=== PATIENT | female | born 1960 | race Hispanic/Latino ===

== ENCOUNTER 2019-08-29 22:47 | Emergency (ER) | payer SELFPAY ==
--- NOTE | 2019-08-30 02:02 | ER ---
Nurse's Notes [facility] Name: Jen Villeda Age: 58 yrs Sex: Female : 1960 Arrival Date: 08/29/2019 Time: 22:49 Bed 16 Private MD: Diagnosis: Tinnitus, bilateral Presentation: 08/29 23:02 Presenting complaint: Patient states: decreased hearing in both ears. 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 pt c/o "rushing water sounds" in her head and ears for 3 days. Transition of care: patient was not received from another setting of care. Onset of symptoms is unknown. Risk Assessment: Do you want to hurt yourself or someone else? Patient reports no desire to harm self or others. Initial Sepsis Screen: Does the patient meet any 2 criteria? No. Patient's initial sepsis screen is negative. Does the patient have a suspected source of infection? No. Patient's initial sepsis screen is negative. Care prior to arrival: None. 23:02 Acuity: JAVED 4 ak1 23:02 Method Of Arrival: Ambulatory ak1 Triage Assessment: 23:08 General: Appears in no apparent distress. Behavior is calm, cooperative. Pain: Denies ak1 pain. EENT: Reports "rushing water" sound in her head and ears. pt c/o decreased hearing in both her ears with dizziness X3 days. . Neuro: Level of Consciousness is awake, alert, obeys commands, Oriented to person, place, time, situation, Research And Development Researcher are equal bilaterally Moves all extremities. Full function Gait is steady, Speech is normal. Cardiovascular: No deficits noted. Respiratory: No deficits noted. GI: No signs and/or symptoms were reported involving the gastrointestinal system. : No signs and/or symptoms were reported regarding the genitourinary system. Derm: No signs and/or symptoms reported regarding the dermatologic system. Musculoskeletal: No signs and/or symptoms reported regarding the musculoskeletal system. Historical: - Allergies: 23:08 Levaquin; ak1 - Home Meds: 23:08 carvedilol Oral 2 times per day [Active]; diazepam 10 mg Oral tab 1 tab nightly ak1 [Active]; - PMHx: 23:08 Anxiety; Hypertension; ak1 - PSHx: 23:08 ; ak1 - Immunization history:: Adult Immunizations unknown. - Social history:: Smoking status: Patient/guardian denies using tobacco. - Ebola Screening: : No symptoms or risks identified at this time. Screenin:06 Abuse screen: Denies threats or abuse. Denies injuries from another. Nutritional cc3 screening: No deficits noted. Tuberculosis screening: No symptoms or risk factors identified. Fall Risk Ambulatory Aid- None/Bed Rest/Nurse Assist (0 pts). Gait- Normal/Bed Rest/Wheelchair (0 pts) Mental Status- Oriented to own ability (0 pts). Assessment: 23:06 General: Appears in no apparent distress. comfortable, Behavior is calm, cooperative, cc3 appropriate for age. Pain: Denies pain. Neuro: Level of Consciousness is awake, alert, obeys commands, Oriented to person, place, time, situation, Appropriate for age. Cardiovascular: Denies chest pain, Heart tones S1 S2 present Capillary refill < 3 seconds in bilateral fingers Patient's skin is warm and dry. Respiratory: Airway is patent Respiratory effort is even, unlabored, Respiratory pattern is regular, symmetrical, Breath sounds are clear bilaterally. GI: Abdomen is round non-distended, Bowel sounds present X 4 quads. Abd is soft and non tender X 4 quads. : No signs and/or symptoms were reported regarding the genitourinary system. EENT: Reports ringing in left ear and right ear. Derm: Skin is intact, is healthy with good turgor, Skin is pink, warm \\T\\ dry. normal. Musculoskeletal: Circulation, motion, and sensation intact. Range of motion: intact in all extremities. 08/30 00:20 Reassessment: Patient appears in no apparent distress at this time. Patient and/or cc3 family updated on plan of care and expected duration. Pain level reassessed. Patient is alert, oriented x 3, equal unlabored respirations, skin warm/dry/pink. Patient denies pain at this time. 01:21 Reassessment: Patient appears in no apparent distress at this time. Patient and/or cc3 family updated on plan of care and expected duration. Pain level reassessed. Patient is alert, oriented x 3, equal unlabored respirations, skin warm/dry/pink. Patient came back from CT scan department, awaiting result. Patient denies pain at this time. 02:40 Reassessment: Patient appears in no apparent distress at this time. Patient and/or cc3 family updated on plan of care and expected duration. Pain level reassessed. Patient is alert, oriented x 3, equal unlabored respirations, skin warm/dry/pink. HOMERO Matthews discharged the patient home with prescriptions given. No IV cannula in situ. Patient left ER vitally stable and ambulatory. No valuables left in the patient's room. Patient denies pain at this time. Vital Signs: 08/29 23:01 BP 171 / 82; Pulse 74; Resp 16; Temp 97.0(O); Pulse Ox 99% on R/A; Weight 76.66 kg (R); ak1 Height 5 ft. 0 in. (152.40 cm) (R); Pain 0/10; 08/30 00:00 BP 155 / 72; Pulse 67; Resp 17 S; Pulse Ox 98% on R/A; cc3 01:23 BP 149 / 67; Pulse 65; Resp 16 S; Pulse Ox 100% on R/A; cc3 02:30 BP 159 / 81; Pulse 68; Resp 16 S; Pulse Ox 99% on R/A; Pain 0/10; cc3 08/29 23:01 Body Mass Index 33.01 (76.66 kg, 152.40 cm) ak1 ED Course: 08/29 22:49 Patient arrived in ED. cl3 23:01 Arm band placed on Patient placed in an exam room, on a stretcher, on pulse oximetry, ak1 Patient notified of wait time. 23:04 Triage completed. ak1 23:06 Gladis Robledo is Primary Nurse. cc3 23:06 Patient has correct armband on for positive identification. Placed in gown. Bed in low cc3 position. Call light in reach. Side rails up X2. Pulse ox on. NIBP on. 23:14 Baldev Matthews PA is PHCP. jr8 23:14 Vasile Ramirez MD is Attending Physician. jr8 08/30 01:20 CT Head Brain wo Cont In Process Unspecified. EDMS 02:40 No provider procedures requiring assistance completed. Patient did not have IV access cc3 during this emergency room visit. Administered Medications: No medications were administered Outcome: 02:01 Discharge ordered by . jr8 02:40 Discharged to home ambulatory. cc3 02:40 Condition: stable 02:40 Discharge instructions given to patient, Instructed on discharge instructions, follow up and referral plans. medication usage, Demonstrated understanding of instructions, follow-up care, medications, Prescriptions given X 2. 02:44 Patient left the ED. cc3 Signatures: Dispatcher [employer] EDMS Baldev Matthews PA PA jr8 Colleen Mulligan RN RN ak1 Gladis Robledo cc3 Ari Garcia cl3
--- NOTE | 2019-08-30 02:03 | EDPHYS ---
Physician Documentation [facility] Name: Jen Villeda Age: 58 yrs Sex: Female : 1960 Arrival Date: 08/29/2019 Time: 22:49 Bed 16 Private MD: ED Physician Vasile Ramirez HPI: 08/29 23:42 This 58 yrs old Female presents to ER via Ambulatory with complaints of jr8 Hearing Noises. 23:42 The patient presents with tinnitus. The complaints affect the right ear and left ear. jr8 Onset: The symptoms/episode began/occurred 3 day(s) ago. Modifying factors: The symptoms are alleviated by nothing, the symptoms are aggravated by nothing. Associated signs and symptoms: Pertinent positives: vertigo. Severity of symptoms: At their worst the symptoms were mild in the emergency department the symptoms are unchanged. Pt reports for the last 3 days she has had a noise in her ears that sounds like the wind roaring. Cannot be stopped by plugging ears. Reports it interferes with hearing and also that she has been having some dizziness when walking that also began three days ago. Historical: - Allergies: 23:08 Levaquin; ak1 - Home Meds: 23:08 carvedilol Oral 2 times per day [Active]; diazepam 10 mg Oral tab 1 tab nightly ak1 [Active]; - PMHx: 23:08 Anxiety; Hypertension; ak1 - PSHx: 23:08 ; ak1 - Immunization history:: Adult Immunizations unknown. - Social history:: Smoking status: Patient/guardian denies using tobacco. - Ebola Screening: : No symptoms or risks identified at this time. ROS: 23:42 Constitutional: Negative for fever, chills, and weight loss, Eyes: Negative for injury, jr8 pain, redness, and discharge, ENT: Negative for injury, pain, and discharge, + for tinnitus Neck: Negative for injury, pain, and swelling, Cardiovascular: Negative for chest pain, palpitations, and edema, Respiratory: Negative for shortness of breath, cough, wheezing, and pleuritic chest pain, Abdomen/GI: Negative for abdominal pain, nausea, vomiting, diarrhea, and constipation, Back: Negative for injury and pain, MS/Extremity: Negative for injury and deformity, Neuro: Negative for headache, weakness, numbness, tingling, and seizure. Exam: 23:45 Constitutional: This is a well developed, well nourished patient who is awake, alert, jr8 and in no acute distress. Head/Face: Normocephalic, atraumatic. Eyes: Pupils equal round and reactive to light, extra-ocular motions intact. Lids and lashes normal. Conjunctiva and sclera are non-icteric and not injected. Cornea within normal limits. Periorbital areas with no swelling, redness, or edema. ENT: Nares patent. No nasal discharge, no septal abnormalities noted. Tympanic membranes are normal and external auditory canals are clear. Oropharynx with no redness, swelling, or masses, exudates, or evidence of obstruction, uvula midline. Mucous membranes moist. Neck: Trachea midline, no thyromegaly or masses palpated, and no cervical lymphadenopathy. Supple, full range of motion without nuchal rigidity, or vertebral point tenderness. No Meningismus. Chest/axilla: Normal chest wall appearance and motion. Nontender with no deformity. No lesions are appreciated. Cardiovascular: Regular rate and rhythm with a normal S1 and S2. No gallops, murmurs, or rubs. Normal PMI, no JVD. No pulse deficits. Respiratory: Lungs have equal breath sounds bilaterally, clear to auscultation and percussion. No rales, rhonchi or wheezes noted. No increased work of breathing, no retractions or nasal flaring. Abdomen/GI: Soft, non-tender, with normal bowel sounds. No distension or tympany. No guarding or rebound. No evidence of tenderness throughout. Back: No spinal tenderness. No costovertebral tenderness. Full range of motion. MS/ Extremity: Pulses equal, no cyanosis. Neurovascular intact. Full, normal range of motion. Neuro: Awake and alert, GCS 15, oriented to person, place, time, and situation. Cranial nerves II-XII grossly intact. Motor strength 5/5 in all extremities. Sensory grossly intact. Cerebellar exam normal. Normal gait. 23:45 Neuro: Exam negative for acute changes, focal neuro deficits, sensory deficits, cerebellar deficits, altered mental status, confusion, cranial nerve deficits, dizziness, dysarthria, gait abnormality. Vital Signs: 23:01 BP 171 / 82; Pulse 74; Resp 16; Temp 97.0(O); Pulse Ox 99% on R/A; Weight 76.66 kg (R); ak1 Height 5 ft. 0 in. (152.40 cm) (R); Pain 0/10; 08/30 00:00 BP 155 / 72; Pulse 67; Resp 17 S; Pulse Ox 98% on R/A; cc3 01:23 BP 149 / 67; Pulse 65; Resp 16 S; Pulse Ox 100% on R/A; cc3 02:30 BP 159 / 81; Pulse 68; Resp 16 S; Pulse Ox 99% on R/A; Pain 0/10; cc3 08/29 23:01 Body Mass Index 33.01 (76.66 kg, 152.40 cm) ak1 MDM: 08/29 23:15 Patient medically screened. jr8 08/30 01:14 ED course: Patient disposition delayed as it took over an hour to have the patient go jr8 to CT. Now pending CT results . 02:00 Data reviewed: vital signs, nurses notes, radiologic studies, and as a result, I will jr8 discharge patient. Data interpreted: Pulse oximetry: on room air is 100 %. Interpretation: normal. Counseling: I had a detailed discussion with the patient and/or guardian regarding: the historical points, exam findings, and any diagnostic results supporting the discharge/admit diagnosis, the presence of at least one elevated blood pressure reading (>120/80) during this emergency department visit, the need for outpatient follow up. ED course: pt still having tinnitus, no focal neuro deficits. Discussed need for outpatient follow up and return precautions. . 08/29 23:39 Order name: CT Head Brain wo Cont jr8 Administered Medications: No medications were administered Disposition: 08/30/19 02:01 Discharged to Home. Impression: Tinnitus, bilateral. - Condition is Stable. - Discharge Instructions: Dizziness, Tinnitus. - Prescriptions for Meclizine 25 mg Oral Tablet - take 1 tablet by ORAL route every 8 hours As needed; 30 tablet. Valium 2 mg Oral Tablet - take 1 tablet by ORAL route every 8 hours As needed; 20 tablet. - Medication Reconciliation Form, Thank You Letter form. - Follow up: Private Physician; When: 2 - 3 days; Reason: Recheck today's complaints, Re-evaluation by your physician. - Problem is new. - Symptoms are unchanged. Addendum: 08/31/2019 08:31 Co-signature as Attending Physician, Vasile Ramirez MD I agree with the assessment and c rossi plan of care. Signatures: Dispatcher [employer] EDMS Vasile Ramirez MD MD cha Roszak, Josh, PA PA jr8 Colleen Mulligan, RN RN ak1 Stiven Robledoe cc3 Corrections: (The following items were deleted from the chart) 08/29 23:42 23:41 This 58 yrs old Female presents to ER via Ambulatory with complaints of jr8 Hearing Noises. jr8 08/30 02:44 02:01 08/30/2019 02:01 Discharged to Home. Impression: Tinnitus, bilateral. Condition cc3 is Stable. Forms are Medication Reconciliation Form, Thank You Letter, Antibiotic Education, Prescription Opioid Use. Follow up: Private Physician; When: 2 - 3 days; Reason: Recheck today's complaints, Re-evaluation by your physician. Problem is new. Symptoms are unchanged. jr8
[2019-08-30 02:59] VITALS: TEMP 97
[2019-08-30 03:03] VITALS: BP 159/81; O2SAT 99
--- NOTE | 2019-08-31 11:19 | RAD REPORT ---
EXAM DESCRIPTION: CT - Head Brain Wo Cont - 08/30/2019 2:48 am CLINICAL HISTORY: 58 years Female DIZZINESS, decreased hearing TECHNIQUE: Contiguous axial CT images obtained through the brain without IV contrast. Coronal and sa gittal reformats also provided. This CT exam was performed according to our departmental dose-optimization program, which includes on e or more of the following dose reduction techniques: automated exposure control, adjustment of the m A and/or kV according to patient size, and/or use of iterative reconstruction technique. COMPARISON: No prior exams provided for comparison. FINDINGS: There is no intracranial hemorrhage, extraaxial collection, or acute transcortical infarct ion. The ventricles are normal in size and contour without mass-effect or midline shift. Osseous structures are normal. The paranasal sinuses and mastoid air cells are clear. IMPRESSION: No acute intracranial abnormalities. Electronically signed by: Reina Rosado MD 08/30/2019 1:45 AM CDT Due to temporary technical issues with the PACS/Fluency reporting system, reports are being signed by the in house radiologist as a courtesy to ensure prompt reporting. The interpreting radiologist is f ully responsible for the content of the report.
== END 2019-08-30 02:44 | disposition home or self-care (01) ==
LOC: ER 22:47
DX: H93.13 Tinnitus, bilateral (principal); I10 Essential (primary) hypertension; F41.9 Anxiety disorder, unspecified; Z88.1 Allergy status to other antibiotic agents
CPT/HCPCS: 70450; 99283

== ENCOUNTER 2020-09-06 12:15 | Emergency (ER) | payer OTHER, SELFPAY ==
[2020-09-06] MEDS ORDERED: NA CHLORIDE 0.9% 1,000 ML ONE (13:04)
[2020-09-06 13:09] LABS: Absolute Lymphocytes (CBC) 2.2 K/uL (0.7-4.9); Hematocrit 39.2 % (36.0-45.0); Lymphocytes % 39.3 % (15.3-44.8); MPV 8.7 fL (7.6-11.3); RBC Red Blood Cell Count 3.99 M/uL (3.86-4.86)
[2020-09-06 13:10] LABS: Protime INR 0.96
--- NOTE | 2020-09-06 13:21 | RAD REPORT ---
EXAM DESCRIPTION: CT - Angio Aorta For Dissection - 09/06/2020 1:05 pm CLINICAL HISTORY: Chest pain radiating to the back. Dissection;PE COMPARISON: No comparisons TECHNIQUE: CT angiography of the aorta was performed with MIPs. All CT scans are performed using dose optimization technique as appropriate and may include automated exposure control or mA/KV adjustment according to patient size. FINDINGS: A left aortic arch is present with normal branching pattern of the great vessels.No acute aortic finding is seen such as aneurysm, penetrating ulcer or dissection. The celiac axis, SMA, TAMIKO and renal arteries are widely patent. No evidence of pulmonary embolism. The lungs are clear. The liver demonstrates no focal mass or biliary dilatation.Diffuse fatty liver.The spleen, pancreas, adrenal glands and kidneys are within normal limits for arterial phase imaging. No bowel obstruction, free fluid or abscess.No pathologic enlarged lymphadenopathy identified.Moderat e stool is seen throughout the colon. Numerous sigmoid diverticula are present. No fracture or worrisome bone lesion seen.Multilevel degenerative change throughout the thoracolumbar spine. IMPRESSION: No acute aortic finding is demonstrated. Diffuse fatty liver. Sigmoid diverticulosis coli without diverticulitis.
[2020-09-06 13:29] LABS: ALT/SGPT 49 U/L (12-78); AST/SGOT 17 U/L (15-37); Albumin 3.8 g/dL (3.4-5.0); Alkaline Phosphatase 97 U/L (45-117); BUN Blood Urea Nitrogen 18 mg/dL (7-18); Bicarbonate 27 mmol/L (21-32); Bilirubin Direct < 0.1 mg/dL (0-0.2); Bilirubin Total 0.2 mg/dL (0.2-1.0); Glucose Level 111 mg/dL (74-106); Lipase 388 U/L (73-393); Magnesium 2.1 mg/dL (1.8-2.4); NT PRO-BNP 40 pg/mL (<125); Potassium 3.9 mmol/L (3.5-5.1); Protein, Total 7.7 g/dL (6.4-8.2); Sodium Level 142 mmol/L (136-145); Troponin (Emerg Dept Use Only) < 0.02 ng/mL (0.0-0.045)
[2020-09-06 13:47] LABS: Urine Blood 2+ (NEG); Urine Glucose NEGATIVE (NEG); Urine Protein NEGATIVE (NEG); Urine Specific Gravity 1.025 (1.005-1.030)
--- NOTE | 2020-09-06 13:47 | RAD REPORT ---
EXAM DESCRIPTION: RAD - Chest Single View - 09/06/2020 1:35 pm CLINICAL HISTORY: Chest pain;Cough COMPARISON: September 2014 TECHNIQUE: AP portable chest image was obtained 09/06/2020 1:35 pm . FINDINGS: Lungs are clear. Heart and vasculature are normal. No measurable pleural effusion and no p neumothorax. No acute bony abnormality seen. No acute aortic findings suspected. IMPRESSION: No acute cardiopulmonary process.
--- NOTE | 2020-09-06 14:35 | ER ---
Nurse's Notes [facility] Name: Jen Villeda Age: 59 yrs Sex: Female : 1960 Arrival Date: 09/06/2020 Time: 12:17 Bed 5 Private MD: Vikki Dorantes H Diagnosis: Other chest pain-sp shingles;Zoster with other complications-post herpetic pain;Abdominal tenderness Presentation: 09/06 12:20 Chief complaint: Patient states: had shingles on my back 10 days ago. Before that I ca1 feel something on my R upper side, like something is moving in there. I feel pain day and night and I feel tired of the pain. I also feel some pain on my upper abdominal area. Denies N/V. Reports alternating constipation and diarrhea. Denies fever. Denies urinary symptoms. Coronavirus screen: Client denies travel out of the [place] in the last 14 days. diarrhea, Client presents with at least one sign or symptom that may indicate coronavirus-19. Standard/surgical mask placed on the client. Provider contacted for isolation considerations. The client denies any previous COVID testing. Ebola Screen: Patient negative for fever greater than or equal to 101.5 degrees Fahrenheit, and additional compatible Ebola Virus Disease symptoms Patient denies exposure to infectious person. Patient denies travel to an Ebola-affected area in the 21 days before illness onset. No symptoms or risks identified at this time. Initial Sepsis Screen: Does the patient meet any 2 criteria? No. Patient's initial sepsis screen is negative. Does the patient have a suspected source of infection? No. Patient's initial sepsis screen is negative. Risk Assessment: Do you want to hurt yourself or someone else? Patient reports no desire to harm self or others. Onset of symptoms was September 06, 2020. 12:20 Method Of Arrival: Ambulatory ca1 12:20 Acuity: JAVED 3 ca1 Historical: - Allergies: 12:24 Levaquin; ca1 - Home Meds: 12:24 carvedilol Oral 2 times per day [Active]; diazepam 10 mg Oral tab 1 tab nightly ca1 [Active]; - PMHx: 12:24 Anxiety; Hypertension; ca1 - PSHx: 12:24 ; ca1 - Immunization history:: Adult Immunizations up to date, Flu vaccine is not up to date. Patient has never been vaccinated. - Social history:: Smoking status: Patient denies any tobacco usage or history of. - Family history:: not pertinent. Screenin:27 Abuse screen: Denies threats or abuse. Nutritional screening: No deficits noted. rb1 Tuberculosis screening: No symptoms or risk factors identified. Fall Risk None identified. Assessment: 12:27 General: Appears in no apparent distress. comfortable, Behavior is calm, cooperative, rb1 Denies fever. Pain: Complains of pain in right side Pain radiates to right upper quadrant. Neuro: Level of Consciousness is awake, alert, obeys commands, Oriented to person, place, time, situation. Cardiovascular: Patient's skin is warm and dry. Respiratory: Airway is patent Respiratory effort is even, unlabored, Respiratory pattern is regular, symmetrical. GI: Reports constipation, diarrhea. GI: Patient currently denies nausea, vomiting. : No signs and/or symptoms were reported regarding the genitourinary system. Musculoskeletal: Range of motion: intact in all extremities. 13:22 Reassessment: Patient appears in no apparent distress at this time. No changes from rb1 previously documented assessment. 14:20 Reassessment: Patient appears in no apparent distress at this time. Patient and/or rb1 family updated on plan of care and expected duration. Pain level reassessed. Patient is alert, oriented x 3, equal unlabored respirations, skin warm/dry/pink. Vital Signs: 12:20 BP 128 / 71; Pulse 79; Resp 18 S; Temp 100(TE); Pulse Ox 97.3% on R/A; Weight 81.19 kg ca1 (R); Height 5 ft. 2 in. (157.48 cm) (R); Pain 7/10; 13:40 BP 108 / 66; Pulse 70; Resp 17; Pulse Ox 100% ; rb1 14:37 BP 129 / 67; Pulse 72; Resp 18; Pulse Ox 100% ; rb1 12:20 Body Mass Index 32.74 (81.19 kg, 157.48 cm) ca1 ED Course: 12:17 Patient arrived in ED. ag5 12:17 Vikki Dorantes DO is Private Physician. ag5 12:23 Triage completed. ca1 12:24 Arm band placed on right wrist. ca1 12:27 Patient has correct armband on for positive identification. Bed in low position. Call rb1 light in reach. Side rails up X 1. Pulse ox on. NIBP on. Warm blanket given. 12:34 Renan Moran, RN is Primary Nurse. jl7 12:42 Vasile Ramirez MD is Attending Physician. [facility] 13:00 Inserted saline lock: 20 gauge in left antecubital area, using aseptic technique. Blood rb1 collected. 13:09 Primary Nurse role handed off by Renan Moran RN rb1 13:09 Zohreh Reyes, RN is Primary Nurse. rb1 14:33 Vikki Dorantes DO is Referral Physician. jadon 15:03 No provider procedures requiring assistance completed. IV discontinued, intact, rb1 bleeding controlled, No redness/swelling at site. Pressure dressing applied. Administered Medications: 13:09 Drug: NS 0.9% 1000 ml Route: IV; Rate: 1 bolus; Site: left antecubital; rb1 Outcome: 14:35 Discharge ordered by . [facility] 15:03 Discharged to home ambulatory. rb1 15:03 Condition: stable 15:03 Discharge instructions given to patient, Instructed on discharge instructions, follow up and referral plans. medication usage, Demonstrated understanding of instructions, follow-up care, medications, Prescriptions given X 1. 15:07 Patient left the ED. rb1 Signatures: Vasile Ramirez MD MD cha Barber, Rebecca, RN RN Renan Oliva, ANGELIKA CARNEY jl7 Tiana Diaz RN RN ca1 Hannah Lewis ag5 Corrections: (The following items were deleted from the chart) 15:12 15:11 Patient left the ED. rb1 rb1
--- NOTE | 2020-09-06 14:35 | EDPHYS ---
Physician Documentation [facility] Name: Jen Villeda Age: 59 yrs Sex: Female : 1960 Arrival Date: 09/06/2020 Time: 12:17 Bed 5 Private MD: Vikki Dorantes H ED Physician Vasile Ramirez HPI: 09/06 12:46 This 59 yrs old Female presents to ER via Ambulatory with complaints of Rt jadon Side Pain. 12:46 The patient or guardian reports chest pain that is located primarily in the anterior jadon chest wall, right. Onset: 2 day(s) ago. The patient presents with abdominal pain. Onset: The symptoms/episode began/occurred 2 day(s) ago. The pain does not radiate. Associated signs and symptoms: none. Modifying factors: The symptoms are alleviated by nothing, the symptoms are aggravated by nothing. Historical: - Allergies: 12:24 Levaquin; ca1 - Home Meds: 12:24 carvedilol Oral 2 times per day [Active]; diazepam 10 mg Oral tab 1 tab nightly ca1 [Active]; - PMHx: 12:24 Anxiety; Hypertension; ca1 - PSHx: 12:24 ; ca1 - Immunization history:: Adult Immunizations up to date, Flu vaccine is not up to date. Patient has never been vaccinated. - Social history:: Smoking status: Patient denies any tobacco usage or history of. - Family history:: not pertinent. ROS: 12:46 Constitutional: Negative for fever, chills, and weight loss, Eyes: Negative for injury, jadon pain, redness, and discharge, ENT: Negative for injury, pain, and discharge, Neck: Negative for injury, pain, and swelling, Cardiovascular: Negative for chest pain, palpitations, and edema, Back: Negative for injury and pain, : Negative for injury, bleeding, discharge, and swelling, MS/Extremity: Negative for injury and deformity, Skin: Negative for injury, rash, and discoloration, Neuro: Negative for headache, weakness, numbness, tingling, and seizure, Psych: Negative for depression, anxiety, suicide ideation, homicidal ideation, and hallucinations, Allergy/Immunology: Negative for hives, rash, and allergies, Endocrine: Negative for neck swelling, polydipsia, polyuria, polyphagia, and marked weight changes, Hematologic/Lymphatic: Negative for swollen nodes, abnormal bleeding, and unusual bruising. 12:46 Respiratory: Positive for pleurisy, of the right lateral posterior chest and right lateral anterior chest, shortness of breath. 12:46 Abdomen/GI: Positive for abdominal pain, of the posterior aspect of right lateral abdomen and anterior aspect of right lateral abdomen. Exam: 12:46 Constitutional: This is a well developed, well nourished patient who is awake, alert, jadon and in no acute distress. Head/Face: Normocephalic, atraumatic. Eyes: Pupils equal round and reactive to light, extra-ocular motions intact. Lids and lashes normal. Conjunctiva and sclera are non-icteric and not injected. Cornea within normal limits. Periorbital areas with no swelling, redness, or edema. ENT: Nares patent. No nasal discharge, no septal abnormalities noted. Tympanic membranes are normal and external auditory canals are clear. Oropharynx with no redness, swelling, or masses, exudates, or evidence of obstruction, uvula midline. Mucous membranes moist. Neck: Trachea midline, no thyromegaly or masses palpated, and no cervical lymphadenopathy. Supple, full range of motion without nuchal rigidity, or vertebral point tenderness. No Meningismus. Chest/axilla: Normal chest wall appearance and motion. Nontender with no deformity. No lesions are appreciated. Cardiovascular: Regular rate and rhythm with a normal S1 and S2. No gallops, murmurs, or rubs. Normal PMI, no JVD. No pulse deficits. Respiratory: Lungs have equal breath sounds bilaterally, clear to auscultation and percussion. No rales, rhonchi or wheezes noted. No increased work of breathing, no retractions or nasal flaring. Back: No spinal tenderness. No costovertebral tenderness. Full range of motion. Female : Normal external genitalia. Skin: Warm, dry with normal turgor. Normal color with no rashes, no lesions, and no evidence of cellulitis. MS/ Extremity: Pulses equal, no cyanosis. Neurovascular intact. Full, normal range of motion. Neuro: Awake and alert, GCS 15, oriented to person, place, time, and situation. Cranial nerves II-XII grossly intact. Motor strength 5/5 in all extremities. Sensory grossly intact. Cerebellar exam normal. Normal gait. Psych: Awake, alert, with orientation to person, place and time. Behavior, mood, and affect are within normal limits. 12:46 Abdomen/GI: Inspection: abdomen appears normal, Bowel sounds: normal, active, Palpation: abdomen is soft and non-tender, in all quadrants, Liver: no appreciated palpable abnormalities, Hernia: not appreciated. Vital Signs: 12:20 BP 128 / 71; Pulse 79; Resp 18 S; Temp 100(TE); Pulse Ox 97.3% on R/A; Weight 81.19 kg ca1 (R); Height 5 ft. 2 in. (157.48 cm) (R); Pain 7/10; 13:40 BP 108 / 66; Pulse 70; Resp 17; Pulse Ox 100% ; rb1 14:37 BP 129 / 67; Pulse 72; Resp 18; Pulse Ox 100% ; rb1 12:20 Body Mass Index 32.74 (81.19 kg, 157.48 cm) ca1 MDM: 12:42 Patient medically screened. jadon 12:42 Patient medically screened. jadon 12:49 Differential diagnosis: abnormal EKG, coronary artery disease chest wall pain, jadon cholecystitis, Cholelithiasis gastroesophageal reflux disease (GERD), pancreatitis, peptic ulcer disease, pulmonary embolus, unstable angina, bowel obstruction, cholecystitis, Cholelithiasis, gastritis, non-specific abd pain, Perf. Gastric Ulcer. HEART Score: History: Slightly Suspicious (0), ECG: Normal (0), Age: > 45 and < 65 years (1), Risk Factors: 1 or 2 risk factors (1), [Hypertension] [+ Family HX] Troponin: < or = 1 x Normal Limit (0). The patient was not given aspirin in the Emergency Department. Not indicated due to patient's past medical history. The patient's deep vein thrombosis risk score was calculated as follows: Total Score: 0. This patient was found to be at low risk for a deep vein thrombosis by using the Well's assessment criteria. The patient's pulmonary embolism risk score was calculated as follows: Total Score: 0-2 points. This patient was found to be at low risk for a pulmonary embolism by using the Well's assessment criteria. FRANCINE Risk Score: TOTAL SCORE = 0. Data reviewed: vital signs, nurses notes, lab test result(s), EKG, radiologic studies, CT scan, plain films. Data interpreted: environmental monitoring technician: rate is 79 beats/min, rhythm is regular, Pulse oximetry: on room air is 100 %. Test interpretation: by ED physician or midlevel provider: ECG, plain radiologic studies. Counseling: I had a detailed discussion with the patient and/or guardian regarding: the historical points, exam findings, and any diagnostic results supporting the discharge/admit diagnosis, lab results, radiology results, the need for outpatient follow up. 09/06 12:45 Order name: Basic Metabolic Panel [facility] 09/06 12:45 Order name: CBC with Diff [facility] 09/06 12:45 Order name: LFT's [facility] 09/06 12:45 Order name: Magnesium [facility] 09/06 12:45 Order name: NT PRO-BNP [facility] 09/06 12:45 Order name: PT-INR [facility] 09/06 12:45 Order name: Troponin (emerg Dept Use Only) [facility] 09/06 12:45 Order name: Lipase [facility] 09/06 12:45 Order name: Urine Culture [facility] 09/06 13:10 Order name: CBC with Automated Diff; Complete Time: 14:02 [facility] 09/06 13:10 Order name: Protime (+INR); Complete Time: 14:02 [facility] 09/06 13:30 Order name: Basic Metabolic Panel; Complete Time: 14:02 [facility] 09/06 13:30 Order name: Liver (Hepatic) Function; Complete Time: 14:02 [facility] 09/06 13:30 Order name: Troponin (Emerg Dept Use Only); Complete Time: 14:02 [facility] 09/06 12:45 Order name: XRAY Chest (1 view) [facility] 09/06 12:45 Order name: EKG; Complete Time: 12:46 [facility] 09/06 12:45 Order name: Cardiac monitoring; Complete Time: 13:03 [facility] 09/06 12:45 Order name: EKG - Nurse/Tech; Complete Time: 14:57 [facility] 09/06 12:45 Order name: IV Saline Lock; Complete Time: 13:03 [facility] 09/06 12:45 Order name: Labs collected and sent; Complete Time: 13:03 [facility] 09/06 12:45 Order name: CT Aorta for Dissection [facility] 09/06 13:24 Order name: CT; Complete Time: 14:02 [facility] 09/06 13:30 Order name: NT PRO-BNP; Complete Time: 14:02 [facility] 09/06 13:30 Order name: Magnesium; Complete Time: 14:02 [facility] 09/06 13:30 Order name: Lipase; Complete Time: 14:02 [facility] 09/06 13:33 Order name: Urine Dipstick--Ancillary (enter results) bd 09/06 13:37 Order name: CREATININE WHOLE BLOOD; Complete Time: 14:02 [facility] 09/06 13:47 Order name: Urine Dipstick-Ancillary; Complete Time: 14:02 [facility] 09/06 13:48 Order name: RAD; Complete Time: 14:02 [facility] 09/06 12:45 Order name: O2 Per Protocol; Complete Time: 13:03 [facility] 09/06 12:45 Order name: O2 Sat Monitoring; Complete Time: 13:03 [facility] 09/06 12:45 Order name: Urine Dipstick-Ancillary (obtain specimen); Complete Time: 14:58 [facility] Administered Medications: 13:09 Drug: NS 0.9% 1000 ml Route: IV; Rate: 1 bolus; Site: left antecubital; rb1 Disposition: 09/06/20 14:35 Discharged to Home. Impression: Other chest pain - sp shingles, Zoster with other complications - post herpetic pain, Abdominal tenderness. - Condition is Stable. - Discharge Instructions: Abdominal Pain, Adult, Nonspecific Chest Pain, Shingles, Shingles, [id number], Abdominal Pain, Adult, [id number], Nonspecific Chest Pain, [id number]. - Prescriptions for gabapentin 300 mg Oral capsule - take 1 capsule by ORAL route 2 times per day; 40 capsule. - Medication Reconciliation Form, Thank You Letter, Antibiotic Education, Prescription Opioid Use form. - Follow up: Vikki Dorantes DO; When: 2 - 3 days; Reason: Recheck today's complaints, Continuance of care, Re-evaluation by your physician. - Problem is new. - Symptoms have improved. Signatures: Dispatcher [employer] EDMA Vasile Ramirez MD MD cha Barber, Rebecca, RN RN rb1 Tiana Diaz RN RN ca1 Corrections: (The following items were deleted from the chart) 15:11 14:35 09/06/2020 14:35 Discharged to Home. Impression: Other chest pain - sp shingles; rb1 Zoster with other complications - post herpetic pain; Abdominal tenderness. Condition is Stable. Forms are Medication Reconciliation Form, Thank You Letter, Antibiotic Education, Prescription Opioid Use. Follow up: Vikki Dorantes; When: 2 - 3 days; Reason: Recheck today's complaints, Continuance of care, Re-evaluation by your physician. Problem is new. Symptoms have improved. jadon
[2020-09-06 15:35] VITALS: TEMP 100
[2020-09-06 15:37] VITALS: O2SAT 100
[2020-09-06 15:39] VITALS: BP 129/67
== END 2020-09-06 15:11 | disposition home or self-care (01) ==
LOC: ER 12:15
DX: B02.8 Zoster with other complications (principal); R10.813 Right lower quadrant abdominal tenderness; I10 Essential (primary) hypertension; F41.9 Anxiety disorder, unspecified; Z88.1 Allergy status to other antibiotic agents
CPT/HCPCS: 87088; 85025; 87086; 80048; 36415; 83735; 85610; 82565; 80076; 81003; 84484; 83690; 83880; 71275; 74175; 71045; Q9967; J7030; 93005; 99284